=== PATIENT | male | born 1965 | race African-American/Black ===

== ENCOUNTER 2016-07-19 09:56 | Emergency (ER) | payer OTHER ==
[2016-07-19 10:45] VITALS: BP 168/76
== END 2016-07-19 10:45 | disposition home or self-care (01) ==
LOC: ED 09:56
DX: R50.9 Fever, unspecified (principal); R51 Headache; R68.83 Chills (without fever); R03.0 Elevated blood-pressure reading, without diagnosis of hypertension; R53.1 Weakness

== ENCOUNTER 2018-08-31 23:44 | Emergency (ER) | payer OTHER ==
[~2018-08-31] VITALS: Ht 188 cm; Wt 98.9 kg
[2018-08-31 23:48] VITALS: Ht 188 cm; Wt 98.9 kg
[2018-09-01 01:05] LABS: BASOPHIL % 1.1 % (0-2); PLATELET COUNT 225 x10^3mcL (130-400)
[2018-09-01 01:07] LABS: RED CELL DISTRIBUTION WIDTH 14.8 % (11.5-14.5)
[2018-09-01 01:15] LABS: CALCIUM 9.4 mg/dL (8.5-10.1); CARBON DIOXIDE 31.3 mmol/L (21-32); CREATININE SERUM 1.4 mg/dL (0.7-1.3); POTASSIUM SERUM 4.1 mmol/L (3.5-5.1)
[2018-09-01 01:20] LABS: ALBUMIN 3.9 g/dL (3.4-5.0); BILIRUBIN TOTAL 0.23 mg/dL (0.20-1.00); TOTAL PROTEIN, SERUM 7.3 g/dL (6.4-8.2)
[2018-09-01 03:11] VITALS: BP 127/89
== END 2018-09-01 03:11 | disposition home or self-care (01) ==
LOC: ED 23:44
PROVIDERS: Emergency Medicine
DX: R07.89 Other chest pain (principal); E78.00 Pure hypercholesterolemia, unspecified
CPT/HCPCS: 36415; Q0092